=== PATIENT | female | born 1995 | race Caucasian/White ===

== ENCOUNTER 2019-03-07 20:03 | Emergency (ER) | payer BC ==
--- NOTE | 2019-03-07 20:14 | Emergency Department Record ---
History of Present Illness - General Chief Complaint: Ankle/Foot Injury Stated Complaint: LT FOOT INJURY Time Seen by Provider: 03/07/19 20:09 Source: Patient Mode of Arrival: Ambulatory Limitations: No limitations - History of Present Illness Initial Comments: 24 yo female presents to ED for evaluation following injury of her left foot at home that occurred 2 days ago. Patient reports pain to the lateral aspect of the left foot following a hyperextension-type injury letting her dog out of the house. Patient reports that she is able to weight bear with pain. Patient denies other health problems, and denies other injury on examination. MD Complaint: Foot injury Onset/Timin -: Days(s) Injury: Foot: Left Type of Injury: Hyperextension Place: Home Severity: Moderate Severity scale (1-10): 7 Improves With: Cold therapy, NSAID Worsens With: Movement, Palpation, Weight bearing Context: Fall Associated Symptoms: Snap/pop sensation, Able to partially bear weight Treatments Prior to Arrival: Cold therapy, Other - Related Data Home Medications Medication Instructions Recorded Confirmed Last Taken No Home Med [NO HOME MEDS] 03/07/19 03/07/19 Unknown Allergies Allergy/AdvReac Type Severity Reaction Status Date / Time acetaminophen [From Percocet] AdvReac VOMITING Verified 03/07/19 20:12 hydrocodone [From Vicodin] AdvReac VOMITING Verified 03/07/19 20:12 NSAIDS (Non-Steroidal AdvReac VOMITING Verified 03/07/19 20:12 Anti-Inflamma oxycodone [From Percocet] AdvReac VOMITING Verified 03/07/19 20:12 Travel Screening - Travel/Exposure Within Last 30 Days Have you traveled within the last 30 days?: No - Travel Symptoms Symptom Screening: None Review of Systems Constitutional: Denies: Chills, Fever, Malaise, Night sweats Eyes: Denies: Eye discharge, Eye pain ENT: Denies: Congestion, Ear pain, Epistaxis Respiratory: Denies: Cough, Dyspnea Cardiovascular: Denies: Chest pain, Dyspnea on exertion Endocrine: Denies: Fatigue, Heat or cold intolerance Gastrointestinal: Denies: Abdominal pain, Nausea, Vomiting Genitourinary: Denies: Incontinence, Retention Musculoskeletal: Reports: Arthralgia. Denies: Back pain Skin: Denies: Bruising, Change in color Neurological: Denies: Abnormal gait, Confusion, Headache, Seizure Psychiatric: Denies: Anxiety Hematological/Lymphatic: Denies: Anemia, Blood Clots Physical Exam - General General Appearance: Alert, Oriented x3, Cooperative, Mild distress Limitations: No limitations - Head Head exam: Atraumatic, Normocephalic, Normal inspection Head exam detail: negative: Abrasion, Contusion, Wright's sign, General tenderness, Hematoma, Laceration - Eye Eye exam: Normal appearance. negative: Conjunctival injection, Periorbital swe lling, Periorbital tenderness, Scleral icterus - ENT Ear exam: negative: Auricular hematoma, Auricular trauma Nasal Exam: negative: Active bleeding, Discharge, Dried blood, Foreign body Mouth exam: negative: Drooling, Laceration, Muffled voice, Tongue elevation - Neck Neck exam: Normal inspection. negative: Meningismus, Tenderness - Respiratory Respiratory exam: Normal lung sounds bilaterally. negative: Rales, Respiratory distress, Rhonchi, Stridor - Cardiovascular Cardiovascular Exam: Regular rate, Normal rhythm, Normal heart sounds Peripheral Pulses: 3+: Dorsalis Pedis (L) - GI/Abdominal GI/Abdominal exam: Soft. negative: Rebound, Rigid, Tenderness - Rectal Rectal exam: Deferred - exam: Deferred - Extremities Extremities exam: Tenderness (TTP over the 3rd-5th metatarsals on examination, no ecchymosis, no deformity noted. Strong DPP on examination.). negative: Calf tenderness, Pedal edema - Back Back exam: Denies: CVA tenderness (R), CVA tenderness (L) - Neurological Neurological exam: Alert, Oriented X3 - Psychiatric Psychiatric exam: Normal affect, Normal mood - Skin Skin exam: Normal color. negative: Abrasion Type of lesion: negative: abrasion Course - Reevaluation(s) Reevaluation #1: 03/07/19 20:27 Left foot: No fracture identified Patient was updated on her radiograph result that is negative for fracture Appears stable for discharge at this time with symptomatic care as discussed. Disposition Disposition: Discharge Clinical Impression: Foot contusion Qualifiers: Encounter type: initial encounter Laterality: left Qualified Code(s): S90.32XA - Contusion of left foot, initial encounter Disposition: Home, Self-Care Condition: (2) Stable Instructions: Foot Contusion (ED) Additional Instructions: Return to ED if your symptoms worsen or if you have any concerns. Ice, Ibuprofen as directed. Follow-up with your family doctor in 3-5 days as directed. Forms: Patient Portal Access Time of Disposition: 20:13 Quality - Quality Measures Quality Measures: N/A - Blood Pressure Screening Does Patient Have Any of the Following: No Blood Pressure Classification: Hypertensive Reading Systolic Measurement: 141 Diastolic Measurement: 98 Screening for High Blood Pressure: < First Hypertensive BP, F/U Documented > [G8950] First Hypertensive Follow-up Interventions: Referral to alternative/primary care provider.
--- NOTE | 2019-03-09 08:01 | RADIOLOGY REPORT ---
EXAM: LEFT FOOT, THREE VIEWS HISTORY: LEFT FOOT PAIN, FOURTH AND FIFTH DIGITS AFTER FALL. TECHNIQUE: Three views of the left foot were obtained. Comparison: None. Encounter: Initial. 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 No bone or joint abnormality is identified. IMPRESSION: NO EVIDENCE FOR FRACTURE OR DISLOCATION. JOB NUMBER: [id number]
== END 2019-03-07 20:30 | disposition home or self-care (01) ==
LOC: ER 20:03
DX: S90.32XA Contusion of left foot, initial encounter (principal); X50.0XXA Overexertion from strenuous movement or load, initial encounter
CPT/HCPCS: 99283